=== PATIENT | male | born 2000 | race African-American/Black ===

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

== ENCOUNTER 2023-06-16 17:33 | Emergency (ER) | payer OTHER, SELFPAY ==
[2023-06-16] MEDS ORDERED: Acetaminophen 500 MG TAB ONE (18:14)
[2023-06-16] MEDS ORDERED: Ibuprofen 800 MG TAB ONE (18:15)
[2023-06-16 18:49] LABS: SARS-CoV-2 NAA Rapid Test Not Detected (NotDetected)
== END 2023-06-16 19:20 | disposition home or self-care (01) ==
LOC: ERS 17:33
DX: J10.1 Influenza due to other identified influenza virus with other respiratory manifestations (principal)
CPT/HCPCS: 87081; 87430; 99283